=== PATIENT | male | born 1990 | race Caucasian/White ===

== ENCOUNTER 2016-12-10 08:10 | Emergency (ER) | payer SELFPAY ==
--- NOTE | 2016-12-10 08:32 | EDM.PDOC ---
ED HPI Trauma - General Chief Complaint: Upper Extremity Injury/Pain Stated Complaint: RT ARM HURTS Time Seen by Provider: 12/10/16 08:23 Source: Reports: Patient History Limitations: Reports: No limitations - History of Present Illness INITIAL COMMENTS - FREE TEXT/NARRATIVE: HISTORY AND PHYSICAL: History of present illness: [] Healthy 26-year-old male several days status post right wrist injury while wrestling. Sore with a small area of swelling in the distal right radial distribution. Pain is worse with movement of the wrist. Patient is able to use his hand with mild discomfort. No prior right wrist problems. No bone joint or bleeding problems. Denies skin changes. Review of systems: As per history of present illness and below otherwise all systems reviewed and negative. Past medical history: As per history of present illness and as reviewed below otherwise noncontributory. Surgical history: As per history of present illness and as reviewed below otherwise noncontributory. Social history: No reported history of drug or alcohol abuse. Family history: As per history of present illness and as reviewed below otherwise noncontributory. Physical exam: HEENT: Atraumatic, normocephalic, pupils reactive, negative for conjunctival pallor or scleral icterus, mucous membranes moist, throat clear, neck supple, nontender, trachea midline. Lungs: Clear to auscultation, breath sounds equal bilaterally, chest nontender. Heart: S1S2, regular, negative for clicks, rubs, or JVD. Abdomen: Soft, nondistended, nontender. Negative for masses or hepatosplenomegaly. Negative for costovertebral tenderness. Pelvis: Stable nontender. Genitourinary: Deferred. Rectal: Deferred. Extremities: Atraumatic, negative for cords or calf pain. Neurovascular unremarkable. Mild soft tissue swelling and soft tissue tenderness over the distal right radius proximal to the wrist. No hematoma ecchymosis or bony tenderness. Normal painless range of motion of wrist. Non-tender hand and mid and proximal forearm Neuro: Awake, alert, oriented. Cranial nerves II through XII unremarkable. Cerebellum unremarkable. Motor and sensory unremarkable throughout. Exam nonfocal. Diagnostics: [] Therapeutics: [] Impression: [] Plan: [] Definitive disposition and diagnosis as appropriate pending reevaluation and review of above. Allergies/ADRs: Allergies No Known Allergies Allergy (Verified 12/10/16 08:20) Home Medications: Ambulatory Orders . [No Known Home Meds] 12/10/16 [Confirmed 12/10/16] Past Medical History - Past Surgical History GI Surgical History: Reports: Appendectomy Social & Family History - Family History Family Medical History: Noncontributory - Tobacco Use Smoking Status *Q: Current Every Day Smoker Years of Tobacco use: 7 Packs/Tins Daily: 0.5 - Alcohol Use Days Per Week of Alcohol Use: 5 Number of Drinks Per Day: 2 Total Drinks Per Week: 10 - Recreational Drug Use Recreational Drug Use: No Review of Systems - Review of Systems Review Of Systems: See Below Trauma Exam - Physical Exam Exam: See Below (See history of present illness) Course - Vital Signs Text/Narrative:: Signs and symptoms consistent with contusion versus mild sprain of right wrist. Mild soft tissue swelling reproducible tenderness. No bony tenderness. No hematoma. Soft compartments performed. Normal range of motion hand and wrist with minimal discomfort. X-ray negative right wrist. Interpreted by me report reviewed Velcro splint NSAIDs elevation /followup with PCP for reevaluation and referral to orthopedics as needed. Last Recorded V/S: Last Vital Signs Temp 36.8 C 12/10/16 08:20 Pulse 70 12/10/16 10:08 Resp 18 12/10/16 10:08 BP 130/70 12/10/16 10:08 Pulse Ox 98 12/10/16 10:08 - Orders/Labs/Meds Orders: Active Orders 24 hr Category Date Time Status DME for Discharge [COMM] Stat Oth 12/10/16 10:01 Ordered Departure - Departure Time of Disposition: 09:56 Disposition: Home, Self-Care 01 Condition: good Clinical Impression: Contusion of right wrist Instructions: Contusion Referrals: PCP,None [Primary Care Provider] - Forms: ED Department Discharge Additional Instructions: Your injury appears to be contusion to right wrist area. This is a bruise and there is mild swelling and tenderness. Take anti-inflammatory medicines 800 mg of Motrin every 6 hours or 500 mg of Naprosyn twice a day as needed. Use over splint as needed for comfort. Avoid strenuous use the wrist until symptoms are resolved. Follow up with your DrMaria Dolores for reevaluation and referral to orthopedics as needed. - My Orders Last 24 Hours: My Active Orders 12/10/16 10:01 DME for Discharge [COMM] Stat - Assessment/Plan Last 24 Hours: My Active Orders 12/10/16 10:01 DME for Discharge [COMM] Stat
--- NOTE | 2016-12-10 09:14 | CR ---
EXAMINATION: Right wrist HISTORY: Pain COMPARISON: None TECHNIQUE: 2 views FINDINGS/IMPRESSION: There is no acute osseous abnormality, dislocation, or fracture identified. Bon e mineralization and joint spaces appear normal. No notable soft tissue swelling.
[2016-12-10 10:10] VITALS: BP 130/70
== END 2016-12-10 10:08 | disposition home or self-care (01) ==
LOC: MW.ED 08:10
DX: S60.211A Contusion of right wrist, initial encounter (principal); F17.210 Nicotine dependence, cigarettes, uncomplicated; X58.XXXA Exposure to other specified factors, initial encounter; Z90.49 Acquired absence of other specified parts of digestive tract
CPT/HCPCS: 73100-26-RT; 73100-RT; 99283

== ENCOUNTER 2017-03-16 09:44 | Emergency (ER) | payer SELFPAY ==
[2017-03-16] MEDS ORDERED: Octyl 2-Cyanoacrylate 1 APPLIC TUBE TOP ONE (10:14)
--- NOTE | 2017-03-16 10:21 | EDM.PDOC ---
ED HPI GENERAL MEDICAL PROBLEM - General Chief Complaint: Laceration Stated Complaint: CUT TO RIGHT SIDE OF THE FACE Time Seen by Provider: 03/16/17 10:10 Source of Information: Reports: Patient History Limitations: Reports: No Limitations - History of Present Illness INITIAL COMMENTS - FREE TEXT/NARRATIVE: HISTORY AND PHYSICAL: History of present illness: [Pt accidentally hit himself in the right side of his head by a roto-rooter that he was using in an enclosed space. Complains of pain and bleeding to R face /head at the site of the laceration, just lateral to R eye. Denies LOC, falls and other injury. Had bleeding at the time of the injury which has resolved. he denies medication use and is up-to-date on tetanus per his report. Has no other complaints or concerns at this time. ] Review of systems: As per history of present illness and below otherwise all systems reviewed and negative. Past medical history: As per history of present illness and as reviewed below otherwise noncontributory. Surgical history: As per history of present illness and as reviewed below otherwise noncontributory. Social history: No reported history of drug or alcohol abuse. Family history: As per history of present illness and as reviewed below otherwise noncontributory. Physical exam: HEENT: 1 cm linear laceration to head, just lateral to right orbit. PERRLA. EOMI. Slight ecchymosis appreciated. No erythema or significant swelling. Mild tenderness with palpation. mucous membranes moist. Extremities: Atraumatic, negative for cords or calf pain. Neurovascular unremarkable. Neuro: Awake, alert, oriented. Motor and sensory unremarkable throughout. Exam nonfocal. Impression: [Laceration] Plan: [See procedure note. Discussed w/ patient that suture would be most appropriate for wound closure. Patient states, "I am a big baby", and wants the wound closed as simply and painlessly as possible. He is in agreement with Dermabond adhesive. Patient tolerated well. All of his questions are answered and concerns are addressed.] Definitive disposition and diagnosis as appropriate pending reevaluation and review of above. - Related Data Allergies Allergy/AdvReac Type Severity Reaction Status Date / Time No Known Allergies Allergy Verified 03/16/17 10:04 Home Meds: Home Meds . [No Known Home Meds] 12/10/16 [History] Past Medical History - Past Surgical History GI Surgical History: Reports: Appendectomy Social & Family History - Family History Family Medical History: Noncontributory - Tobacco Use Smoking Status *Q: Current Every Day Smoker Years of Tobacco use: 7 Packs/Tins Daily: 0.5 - Alcohol Use Days Per Week of Alcohol Use: 5 Number of Drinks Per Day: 2 Total Drinks Per Week: 10 - Recreational Drug Use Recreational Drug Use: No ED ROS GENERAL - Review of Systems Review Of Systems: ROS reveals no pertinent complaints other than HPI. ED EXAM, SKIN/RASH Exam: See Below ED SKIN PROCEDURES - Laceration/Wound Repair Right Lateral Face Lac/Wound length In cm: 1 Appearance: Subcutaneous, Linear, Clean Distal NVT: Neuro & Vascular Intact Skin Prep: Chlorhexidine (Hibiciens) Exploration/Debridement/Repair: Wound Explored, in a Bloodless Field Closed with: Dermabond Course - Vital Signs Last Recorded V/S: Last Vital Signs Temp 97.6 F 03/16/17 10:58 Pulse 69 03/16/17 10:58 Resp 16 03/16/17 10:58 BP 120/81 03/16/17 10:58 Pulse Ox 98 03/16/17 10:58 - Orders/Labs/Meds Meds: Medications Discontinued Medications Generic Name Dose Route Start Last Admin Trade Name Luz PRN Reason Stop Dose Admin Octyl Cyanoacrylate 1 applic 03/16/17 10:14 03/16/17 10:36 Dermabond Mini TOP 03/16/17 10:15 1 applic ONETIME ONE Administration Departure - Departure Time of Disposition: 10:50 Disposition: Home, Self-Care 01 Condition: Good Clinical Impression: Laceration of face Qualifiers: Encounter type: initial encounter Qualified Code(s): S01.81XA - Laceration without foreign body of other part of head, initial encounter - Discharge Information Instructions: Laceration Care, Adult, [id number] Referrals: PCP,None [Primary Care Provider] - Forms: ED Department Discharge Additional Instructions: The following information is given to patients seen in the emergency department who are being discharged to home. This information is to outline your options for follow-up care. We provide all patients seen in our emergency department with a follow-up referral. The need for follow-up, as well as the timing and circumstances, are variable depending upon the specifics of your emergency department visit. If you don't have a primary care physician on staff, we will provide you with a referral. We always advise you to contact your personal physician following an emergency department visit to inform them of the circumstance of the visit and for follow-up with them and/or the need for any referrals to a consulting specialist. The emergency department will also refer you to a specialist when appropriate. This referral assures that you have the opportunity for follow-up care with a specialist. All of these measure are taken in an effort to provide you with optimal care, which includes your follow-up. Under all circumstances we always encourage you to contact your private physician who remains a resource for coordinating your care. When calling for follow-up care, please make the office aware that this follow-up is from your recent emergency room visit. If for any reason you are refused follow-up, please contact the [facility] emergency department at and asked to speak to the emergency department charge nurse. [facility] [address] [place] [id number] Follow-up with your primary care provider at the clinic listed above 48-72 hours. Tylenol or ibuprofen as needed. Don't pick at the glue that was placed on the laceration. Return to ER as needed as discussed.
[2017-03-16 11:01] VITALS: BP 120/81
== END 2017-03-16 10:58 | disposition home or self-care (01) ==
LOC: MW.ED 09:44
DX: S01.81XA Laceration without foreign body of other part of head, initial encounter (principal); F17.210 Nicotine dependence, cigarettes, uncomplicated; Z90.49 Acquired absence of other specified parts of digestive tract; W22.8XXA Striking against or struck by other objects, initial encounter
CPT/HCPCS: 12011; 99283; A9270; 99282